=== PATIENT | male | born 1985 | race Caucasian/White ===

== ENCOUNTER 2017-04-15 09:38 | Day surgery (SDC) | payer BC ==
[~2017-04-15] VITALS: Ht 185.4 cm; Wt 82.6 kg
[~2017-04-15 09:38] MED LIST: ASTHMA INHALER INH; PANTOPRAZOLE PO
[2017-04-15 11:15] VITALS: Ht 185.4 cm; Wt 82.6 kg
[2017-04-15] MEDS ORDERED: CANASA (11:23)
[2017-04-15] MEDS ORDERED: LINZESS (11:23)
[2017-04-15] MEDS ORDERED: PROPOFOL 20 ML ONE ×3 (11:34→12:11)
[2017-04-15] MEDS ORDERED: ONDANSETRON 4 MG INJ ONE (11:35)
[2017-04-15] MEDS ORDERED: METOCLOPRAMIDE 10 MG INJ ONE (11:35)
[2017-04-15 11:40] VITALS: BP 142/81; PULSE 114; RESP 18
[2017-04-15 12:42] VITALS: BP 115/75; RESP 20
--- NOTE | 2017-04-16 05:56 | GILP ---
DATE OF PROCEDURE: NAME OF PROCEDURES: 1. Esophagogastroduodenoscopy and biopsy. 2. Colonoscopy and biopsy. SURGEON: Connie Huynh MD PREOPERATIVE DIAGNOSES: 1. Chronic heartburn. 2. Chronic diarrhea and rectal bleeding. POSTOPERATIVE DIAGNOSES: 1. Hiatal hernia. 2. Gastroesophageal reflux disease. 3. Gastritis with erosions. 4. Gastric mucosal biopsies were taken for Helicobacter pylori test. 5. Colonoscopy all the way to the cecum and into the terminal ileum. 6. Normal terminal ileum. 7. Ulcerative colitis extending all the way to the cecum and biopsies were taken for histopathology . INDICATION FOR THE PROCEDURE: Mr. Doris Alvarado is a 31-year-old male patient who had chronic h eartburn, not responding to therapy. The patient also had chronic diarrhea and rectal bleeding. patient was scheduled for endoscopy and colonoscopy for further evaluation. The procedures and possible complications are well explained to the patient, he understood and conse nted to the procedure. DESCRIPTION OF PROCEDURE: Under the influence of anesthesia, the gastroscope was carefully introduc ed into the esophagus and under direct vision, it was advanced to the stomach and through the pyloru s into the duodenal bulb and descending duodenum. FINDINGS: ESOPHAGUS: The patient had hiatal hernia and gastroesophageal reflux disease. STOMACH: He had gastritis with erosions. Gastric mucosal biopsies were taken for H. pylori test. DUODENUM: Normal. The colonoscope was carefully introduced in the rectum and under direct vision, it was advanced all the way to the cecum and through the ileocecal valve into the terminal ileum. FINDINGS: The terminal ileum was normal. The patient was noted to have ulcerative colitis extendin g all the way to the cecum, more prominent in the rectum and the left colon. Random biopsies were t aken for histopathology. Stool was collected for C. difficile toxin. He tolerated the procedures very well and there was no complication from the procedures. At the end of the procedures, he was awake with stable vital signs and he was discharged home to the care of h is family. IMPRESSION: 1. Hiatal hernia. 2. Gastroesophageal reflux disease. 3. Gastritis with erosions. 4. Gastric mucosal biopsies were taken for Helicobacter pylori test. 5. Colonoscopy all the way to the cecum and into the terminal ileum. 6. Normal terminal ileum. 7. Ulcerative colitis extending all the way to the cecum. 8. Random biopsies were taken for histopathology. 9. Stool was collected for C. difficile toxin. PLAN: 1. Pantoprazole 40 mg p.o. q.a.m. 2. Lialda 4 tablets p.o. daily. 3. Await histopathology reports. Dictated By: CONNIE SANCHEZ/DAVID Conf#: [id number] DID#: [id number]
== END 2017-04-15 15:33 | disposition home or self-care (01) ==
LOC: GIL 09:38
PROVIDERS: ATTEND Internal Medicine Gastroenterology
DX: K92.1 Melena (principal); K44.9 Diaphragmatic hernia without obstruction or gangrene; K21.9 Gastro-esophageal reflux disease without esophagitis; K29.60 Other gastritis without bleeding; K63.3 Ulcer of intestine
CPT/HCPCS: 43239; 45380; 87075; J2405; J2765